=== PATIENT | male | born 1955 | race Two or more races ===

== ENCOUNTER 2019-05-16 14:12 | Emergency (ER) | payer MEDICARE ==
[~2019-05-16] VITALS: Ht 188 cm; Wt 81.6 kg
[2019-05-16 14:58] VITALS: BP 165/87
[2019-05-16] MEDS ORDERED: DOCU-109 PO (15:36)
[2019-05-16] MEDS ORDERED: HYDR-3164 PO (15:36)
[2019-05-16] MEDS ORDERED: IBUP-1007 PO (15:36)
[2019-05-16] MEDS ORDERED: ORPH100T PO (15:36)
--- NOTE | 2019-05-16 15:36 | PHYS DOC ---
Past Medical History Past Medical History: No Pertinent History Past Surgical History: No Surgical History Alcohol Use: None Drug Use: None Adult General Chief Complaint Chief Complaint: LOWER BACK PAIN OR INJURY HPI HPI Patient is a 64 year old male who presents with tripped and fell backward onto stools in the kitchen table on Sunday. Patient states now his left lower back has a stabbing pain in it when he goes from sitting to standing or standing to s itting. He states is the only time that it hurts. He rates his pain at this time an 8 out of 10 only when he sits to stand to sitting. He states he's been taking ibuprofen for this pain. He states he cannot use the lidocaine patches anything like that [id number] because he cannot clinically takes the medication. Review of Systems Review of Systems Musculoskeletal: left low back pain or joint pain [] All other systems were reviewed and found to be within normal limits, except as documented in this note. Allergies Allergies Allergies Coded Allergies Type Severity Reaction Last Updated Verified No Known Drug Allergies 05/16/19 No Physical Exam Physical Exam Constitutional: Well developed, well nourished, no acute distress, non-toxic appearance. [] HENT: Normocephalic, atraumatic, bilateral external ears normal, oropharynx moist, no oral exudates, nose normal. [] Eyes: PERRLA, EOMI, conjunctiva normal, no discharge. [] Neck: Normal range of motion, no tenderness, supple, no stridor. [] Cardiovascular:Heart rate regular rhythm, no murmur [] Lungs & Thorax: Bilateral breath sounds clear to auscultation [] Abdomen: Bowel sounds normal, soft, no tenderness, no masses, no pulsatile masses. [] Skin: Warm, dry, no erythema, no rash. [] Back: No tenderness, no CVA tenderness. [] Extremities: No tenderness, no cyanosis, no clubbing, ROM intact, no edema. [] Neurologic: Alert and oriented X 3, normal motor function, normal sensory function, no focal deficits noted. [] Psychologic: Affect normal, judgement normal, mood normal. *Normal Physical Exam[] Current Patient Data Vital Signs Vital Signs Date Time Temp Pulse Resp B/P (MAP) Pulse Ox O2 Delivery O2 Flow Rate FiO2 05/16/19 14:58 98.6 69 18 165/87 (113) 99 Room Air 98.6 EKG EKG [] Radiology/Procedures Radiology/Procedures [] Course & Med Decision Making Course & Med Decision Making Alert and oriented. Ambulatory with steady gait. Full range of motion of his back and can twist and bend and lift off his extremities. No extremity weaknesses. Denies any numbness or tingling. No saddle paresthesia. Denies the pain being radiating. Skin pink warm and dry. No extremity swelling. No bruising or tenderness to his back. Denies head or neck pain. Denies hitting his head. Denies blood thinners. Dragon Disclaimer Dragon Disclaimer This electronic medical record was generated, in whole or in part, using a voice recognition dictation system. Departure Departure Impression: Primary Impression: Low back pain Disposition: 01 HOME, SELF-CARE Condition: STABLE Referrals: UNKNOWN PCP NAME (PCP) Patient Instructions: Low Back Strain with [facility] Additional Instructions: [facility] Take medications as prescribed. Use heating pad 20 minutes on 20 minutes off. Scripts Docusate Sodium (COLACE) 100 Mg Capsule 1 CAP PO BID for 30 Days, #60 CAP 0 Refills Prov: MARII FERNÁNDEZ APRN 05/16/19 Orphenadrine Citrate (ORPHENADRINE CITRATE) 100 Mg Tablet.er 1 TAB PO BID, #15 TAB Prov: MAIRI FERNÁNDEZ APRN 20 Ibuprofen (IBUPROFEN) 600 Mg Tablet 600 MG PO PRN Q6HRS PRN for INFLAMMATION, #20 TAB Prov: MARII FERNÁNDEZ APRN 20 Hydrocodone/Apap 5-325 (NORCO 5-325 TABLET) 1 Each Tablet 1 TAB PO PRN Q6HRS PRN for PAIN, #10 TAB 0 Refills Prov: MARII FERNÁNDEZ APRN 05/16/19 Problem Qualifiers Primary Impression: Low back pain Chronicity: acute Back pain laterality: left Sciatica presence: without sciatica Qualified Codes: M54.5 - Low back pain MARII FERNÁNDEZ APRN May 16, 2019 15:36
== END 2019-05-16 15:47 | disposition home or self-care (01) ==
LOC: ER 14:12
DX: M54.5 Low back pain (principal); G89.11 Acute pain due to trauma; W01.190A Fall on same level from slipping, tripping and stumbling with subsequent striking against furniture, initial encounter; Y93.89 Activity, other specified; Y92.090 Kitchen in other non-institutional residence as the place of occurrence of the external cause; Y99.8 Other external cause status
CPT/HCPCS: 99283